=== PATIENT | female | born 2005 | race African-American/Black ===

== ENCOUNTER 2023-09-12 13:28 | Emergency (ER) | payer MEDICAID, OTHER ==
[~2023-09-12] VITALS: Ht 177.8 cm; Wt 99.6 kg
[2023-09-12 14:59] VITALS: BP 115/75; PULSE 76; RESP 18; TEMP 98; O2SAT 99
[2023-09-12] MEDS ORDERED: METH-1182 PO (15:27)
[2023-09-12] MEDS ORDERED: IBUP-1456 PO (15:27)
== END 2023-09-12 15:31 | disposition home or self-care (01) ==
LOC: ER 13:28
DX: S39.012A Strain of muscle, fascia and tendon of lower back, initial encounter (principal); V43.52XA Car driver injured in collision with other type car in traffic accident, initial encounter; Y93.89 Activity, other specified; Y92.89 Other specified places as the place of occurrence of the external cause; Y99.8 Other external cause status
CPT/HCPCS: 72100